=== PATIENT | male | born 1985 | race African-American/Black ===

== ENCOUNTER 2022-11-16 00:46 | Emergency (ER) | payer MEDICAID ==
[~2022-11-16] VITALS: Ht 188 cm; Wt 77.2 kg
[2022-11-16 00:56] VITALS: BP 121/71; PULSE 74; RESP 19; TEMP 98.2; O2SAT 99
[2022-11-16] MEDS ORDERED: KETOROLAC TROMETH 30 MG/ML 1ML VIAL IM ONE (02:00)
[2022-11-16] MEDS ORDERED: ZOFR4T PO (02:05)
[2022-11-16] MEDS ORDERED: HYDR-4798 PO (02:05)
[2022-11-16] MEDS ORDERED: HYDROcodone-ACET 5/325MG TAB PO ONE (02:15)
[2022-11-16] MEDS ORDERED: ONDANSETRON ODT 4 MG TAB PO ONE (02:15)
== END 2022-11-16 02:20 | disposition home or self-care (01) ==
LOC: ER 00:46
DX: S52.025A Nondisplaced fracture of olecranon process without intraarticular extension of left ulna, initial encounter for closed fracture (principal); Z79.1 Long term (current) use of non-steroidal anti-inflammatories (NSAID); Z79.899 Other long term (current) drug therapy; V00.848A Other accident with standing micro-mobility pedestrian conveyance, initial encounter; Y93.89 Activity, other specified; Y92.89 Other specified places as the place of occurrence of the external cause; Y99.8 Other external cause status
CPT/HCPCS: 29105; 73080; 99283; Q0162